=== PATIENT | male | born 1960 | race Caucasian/White ===

== ENCOUNTER 2017-06-12 13:01 | Day surgery (SDC) | payer BC ==
[2017-06-12] MEDS ORDERED: MIDAZOLAM 1 MG/ML 2 ML INJ (13:50)
[2017-06-12] MEDS ORDERED: PROPOFOL 20 ML (13:50)
[2017-06-12] MEDS ORDERED: FENTAnyl 50 MCG/ML VIAL (13:50)
== END 2017-06-12 16:12 | disposition home or self-care (01) ==
LOC: GIL 13:01
DX: K92.1 Melena (principal); D12.5 Benign neoplasm of sigmoid colon; I10 Essential (primary) hypertension; K57.90 Diverticulosis of intestine, part unspecified, without perforation or abscess without bleeding; K64.8 Other hemorrhoids
CPT/HCPCS: 45380; 88305